=== PATIENT | male | born 2000 | race Caucasian/White ===

== ENCOUNTER 2021-11-20 17:44 | Emergency (ER) | payer SELFPAY ==
[2021-11-20] MEDS ORDERED: Sodium Chloride 0.9% 10 ML Syringe FLUSH PRN (18:17)
== END 2021-11-20 19:25 | disposition home or self-care (01) ==
LOC: JD.ED 17:44
DX: R00.2 Palpitations (principal); F10.230 Alcohol dependence with withdrawal, uncomplicated
CPT/HCPCS: 93005; 99285-25